=== PATIENT | male | born 1985 | race Caucasian/White ===

== ENCOUNTER 2019-11-07 09:57 | Inpatient (IN) | payer OTHER ==
[2019-11-07 10:39] VITALS: BMI 32.0
--- NOTE | 2019-11-07 11:16 | HP ---
CIWA Score Nausea/Vomitin Muscle Tremors: 3 Anxiety: 3 Agitation: 3 Paroxysmal Sweats: 1-Minimal Palms Moist Orientation: 0-Oriented Tacttile Disturbances: 1-Very Mild Itch/Numbness Auditory Disturbances: 0-None Visual Disturbances: 0-None Headache: 2-Mild CIWA-Ar Total Score: 15 - Admission Criteria OASAS Guidelines: Admission for Medically Managed Detox: Requires at least one of the followin. CIWA greater than 12 2. Seizures within the past 24 hours 3. Delirium tremens within the past 24 hours 4. Hallucinations within the past 24 hours 5. Acute intervention needed for co occurring medical disorder 6. Acute intervention needed for co occurring psychiatric disorder 7. Severe withdrawal that cannot be handled at a lower level of care (continued vomiting, continued diarrhea, abnormal vital signs) requiring intravenous medication and/or fluids 8. Admitting History and Physical - Admission Chief Complaint: i need help to stop drinking alcohol History of Present Illness: this 33 years old male with alcohol dependence,seeking detox,mandated by court, last detox 6 months ago seizure last 6 months ago History Source: Patient Limitations to Obtaining History: No Limitations - Smoking History Smoking history: Current every day smoker Have you smoked in the past 12 months: Yes Aproximately how many cigarettes per day: 20 - Alcohol/Substance Use Hx Alcohol Use: Yes - Social History Usual Living Arrangement: Yes: Alone ADL: Independent Occupation: truck mechanic apprentice History of Recent Travel: No Admission ROS [facility] Chief Complaint: i need help to stop drinking alcohol Allergies/Adverse Reactions: Allergies Allergy/AdvReac Type Severity Reaction Status Date / Time No Known Allergies Allergy Verified 11/07/19 10:32 History of Present Illness: this 33 years old male with alcohol dependence seeking detox mandated by court seizure last 6 months ago last detox 6 months ago in [place] denied medical problem no period of sobriety Exam Limitations: No Limitations - Ebola screening Have you traveled outside of the country in the last 21 days: No Have you had contact with anyone from an Ebola affected area: No - Review of Systems Constitutional: Loss of Appetite, Malaise, Night Sweats, Changes in sleep, Weakness EENT: reports: No Symptoms Reported Respiratory: reports: No Symptoms reported Cardiac: reports: No Symptoms Reported GI: reports: Nausea, Poor Appetite, Abdominal cramping : reports: No Symptoms Reported Musculoskeletal: reports: Back Pain, Muscle Pain Integumentary: reports: Dryness Neuro: reports: Headache, Tremors Endocrine: reports: No Symptoms Reported Hematology: reports: No Symptoms Reported Psychiatric: reports: No Sypmtoms Reported, Judgement Intact, Mood/Affect Appropiate, Orientated x3, other Other Systems: Reviewed and Negative Patient History - Patient Medical History Hx Anemia: No Hx Asthma: No Hx Chronic Obstructive Pulmonary Disease (COPD): No Hx Cancer: No Hx Cardiac Disorders: No Hx Congestive Heart Failure: No Hx Hypertension: No Hx Hypercholesterolemia: No Hx Pacemaker: No HX Cerebrovascular Accident: No Hx Seizures: No Hx Dementia: No Hx Diabetes: No Hx Gastrointestinal Disorders: No Hx Liver Disease: No Hx Genitourinary Disorders: No Hx Sexually Transmitted Disorders: No Hx Renal Disease (ESRD): No Hx Thyroid Disease: No Hx Human Immunodeficiency Virus (HIV): No (10/23 negative) Hx Hepatitis C: No Hx Depression: No Hx Suicide Attempt: No Hx Bipolar Disorder: No Hx Schizophrenia: No Other Medical History: no suicidal,no homicidal - Patient Surgical History Past Surgical History: No - PPD History Previous Implant?: Yes Documented Results: Negative w/o proof Implanted On Prior [facility] Admission?: No PPD to be Administered?: Yes - Smoking Cessation Smoking history: Current every day smoker Have you smoked in the past 12 months: Yes Aproximately how many cigarettes per day: 20 Cigars Per Day: 0 Hx Chewing Tobacco Use: No Initiated information on smoking cessation: Yes 'Breaking Loose' booklet given: 11/07/19 - Substance & Tx. History Hx Alcohol Use: Yes Substance Use Type: Alcohol, Cocaine, Marijuana Hx Substance Use Treatment: Yes (05/23 in [facility]) - Substances abused Alcohol Substance route: Oral Frequency: Daily Amount used: 1 LITER OF VODKA Age of first use: 27 Date of last use: 11/07/19 Marijuana/Hashish Substance route: Smoking Frequency: 1-3 times last 30 days Amount used: $20 Age of first use: 16 Date of last use: 11/07/19 Crack Substance route: Smoking Frequency: 1-2 times per week Amount used: 8 GRAMS OR $600 PER WEEKEND Age of first use: 31 Date of last use: 11/07/19 Admission Physical Exam [facility] - Vital Signs Vital Signs: Vital Signs - 24 hr 01/03/20 10:26 Temperature 96.9 F L Pulse Rate 99 H Respiratory 17 Rate Blood Pressure 123/87 - Physical General Appearance: Yes: Moderate Distress, Tremorous, Irritable, Sweating, Anxious HEENTM: Yes: Normal ENT Inspection, JAYMIE, Pharynx Normal Respiratory: Yes: Lungs Clear, Normal Breath Sounds, No Respiratory Distress Neck: Yes: Within Normal Limits, Supple, Trachea in good position Breast: Yes: Within Normal Limits Cardiology: Yes: Within Normal Limits, Regular Rhythm, Regular Rate, S1, S2 Abdominal: Yes: Within Normal Limits, Normal Bowel Sounds, Non Tender, Flat, Soft Genitourinary: Yes: Within Normal Limits Back: Yes: Muscle Spasm Musculoskeletal: Yes: Back pain, Muscle Pain Extremities: Yes: Tremors Neurological: Yes: mold tooling technician II-XII NML intact, Fully Oriented, Alert, Motor Strength 5/5 Integumentary: Yes: Dry Lymphatic: Yes: Within Normal Limits - Diagnostic (1) Alcohol dependence with uncomplicated withdrawal Current Visit: Yes Status: Acute (2) Alcohol dependence with uncomplicated intoxication Current Visit: Yes Status: Acute (3) Nicotine dependence Current Visit: Yes Status: Acute (4) Seizure Current Visit: Yes Status: Acute Cleared for Admission [facility] - Detox or Rehab [facility] Level of Care: Medically Managed Detox Regimen/Protocol: Librium Breathalyzer - Breathalyzer Breathalyzer: 0.357 Urine Drug Screen - Test Device Lot number: [id number] Expiration date: 08/04/21 - Control Is test valid?: Yes - Results Drug screen NEGATIVE: No Urine drug screen results: BZO-Benzodiazepines Inpatient Rehab Admission - Rehab Decision to Admit Inpatient rehab admission?: No
[2019-11-07] MEDS ORDERED: NICOTINE POLACRILEX 2 MG GUM BUC PRN (11:24)
[2019-11-07] MEDS ORDERED: BISMUTH SUBSALICYLATE 262 MG/15 ML BTL PO PRN (11:24)
[2019-11-07] MEDS ORDERED: hydrOXYzine PAMOATE 25 MG CAPSULE (FP) PO PRN (11:24)
[2019-11-07] MEDS ORDERED: MAGNESIUM HYDROX 2400MG/30ML ORAL SUSPENSION 30 ML CUP PO PRN (11:24)
[2019-11-07] MEDS ORDERED: MENTHOL/PHENOL 1 EACH UD MM PRN (11:24)
[2019-11-07] MEDS ORDERED: IBUPROFEN 400 MG TABLET (FP) PO PRN (11:24)
[2019-11-07] MEDS ORDERED: METHOCARBAMOL 500 MG TABLET PO PRN (11:24)
[2019-11-07] MEDS ORDERED: ACETAMINOPHEN 325 MG TABLET (FP) PO PRN ×2 (11:24)
[2019-11-07] MEDS ORDERED: chlordiazePOXIDE HCL 25 MG CAPSULE PO PRN (11:24)
[2019-11-07] MEDS ORDERED: MAG HYDROX/AL HYDROX/SIMETH 30 ML UNIT-DOSE CUP PO PRN (11:24)
[2019-11-07] MEDS ORDERED: MAGNESIUM CITRATE 300 ML BOTTLE PO PRN (11:24)
[2019-11-07] MEDS: NICOTINE 21 MG/24 HOURS TOPICAL PATCH TD SCH (12:16)
[2019-11-07 15:31] LABS: MCH 28.9 pg (25.7-33.7); MCHC 32.6 g/dl (32.0-35.9); MEAN CELL VOLUME 88.5 fl (80-96); MEAN PLT VOLUME 7.9 fl (7.5-11.1); PLATELET COUNT 168 K/MM3 (134-434); RBC 5.19 M/mm3 (4.00-5.60); RDW 16.1 % (11.9-15.9); WHITE BLOOD COUNT 8.2 K/mm3 (4.0-10.0)
[2019-11-07 15:34] LABS: ALBUMIN 4.3 g/dl (3.4-5.0); BILIRUBIN,TOTAL 0.2 mg/dL (0.2-1); BLOOD UREA NITROGEN 14.7 mg/dL (7-18); CALCIUM 8.4 mg/dL (8.5-10.1); CREATININE 0.7 mg/dL (0.55-1.3); POTASSIUM 4.1 mmol/L (3.5-5.1); TOT PROT 7.2 g/dl (6.4-8.2)
[2019-11-07] MEDS: chlordiazePOXIDE HCL 25 MG CAPSULE PO SCH ×2 (17:22→22:10)
[2019-11-07] MEDS ORDERED: ONDANSETRON *ODT* 4 MG TABLET SL PRN (19:01)
[2019-11-07] MEDS ORDERED: TRIMETHOBENZAMIDE HCL 200MG/2ML INJ IM PRN (21:24)
[2019-11-07] MEDS: THIAMINE HCL 100 MG TABLET (FP) PO SCH (22:09)
[2019-11-07] MEDS: MELATONIN 5 MG TABLETS PO PRN (22:10)
[2019-11-07] MEDS: levETIRAcetam 500 MG TABLET (FP) PO SCH (22:10)
[2019-11-08] MEDS: chlordiazePOXIDE HCL 25 MG CAPSULE PO SCH ×4 (06:05→22:49)
--- NOTE | 2019-11-08 10:51 | PN ---
[facility] CIWA - CIWA Score Nausea/Vomitin-No Nausea/No Vomiting Muscle Tremors: 2 Anxiety: 3 Agitation: 1-Slight > Activity Paroxysmal Sweats: 3 Orientation: 0-Oriented Tacttile Disturbances: 0-None Auditory Disturbances: 0-None Visual Disturbances: 0-None Headache: 2-Mild CIWA-Ar Total Score: 11 [facility] Progress Note (SOAP) Subjective: c/o headache, anxiety, sweats, and shakes. Objective: 11/08/19 10:50 Vital Signs 11/08/19 11/08/19 11/08/19 03:30 06:07 09:09 Temperature 97.6 F 97.3 F L Pulse Rate 72 64 Respiratory 18 18 19 Rate Blood Pressure 128/71 127/78 Laboratory Last Values WBC 8.2 K/mm3 (4.0-10.0) 11/07/19 11:15 RBC 5.19 M/mm3 (4.00-5.60) 11/07/19 11:15 Hgb 15.0 GM/dL (11.7-16.9) 11/07/19 11:15 Hct 46.0 % (35.4-49) 11/07/19 11:15 MCV 88.5 fl (80-96) 11/07/19 11:15 MCH 28.9 pg (25.7-33.7) 11/07/19 11:15 MCHC 32.6 g/dl (32.0-35.9) 11/07/19 11:15 RDW 16.1 % (11.9-15.9) H 11/07/19 11:15 Plt Count 168 K/MM3 (134-434) 11/07/19 11:15 MPV 7.9 fl (7.5-11.1) 11/07/19 11:15 Sodium 143 mmol/L (136-145) 11/07/19 11:15 Potassium 4.1 mmol/L (3.5-5.1) 11/07/19 11:15 Chloride 111 mmol/L (98-107) H 11/07/19 11:15 Carbon Dioxide 23 mmol/L (21-32) 11/07/19 11:15 Anion Gap 9 MMOL/L (8-16) 11/07/19 11:15 BUN 14.7 mg/dL (7-18) 11/07/19 11:15 Creatinine 0.7 mg/dL (0.55-1.3) 11/07/19 11:15 Est GFR (CKD-EPI)AfAm 143.71 11/07/19 11:15 Est GFR (CKD-EPI)NonAf 123.99 11/07/19 11:15 Random Glucose 101 mg/dL (74-106) 11/07/19 11:15 Calcium 8.4 mg/dL (8.5-10.1) L 11/07/19 11:15 Total Bilirubin 0.2 mg/dL (0.2-1) 11/07/19 11:15 AST 66 U/L (15-37) H 11/07/19 11:15 ALT 80 U/L (13-61) H 11/07/19 11:15 Alkaline Phosphatase 135 U/L (45-117) H 11/07/19 11:15 Total Protein 7.2 g/dl (6.4-8.2) 11/07/19 11:15 Albumin 4.3 g/dl (3.4-5.0) 11/07/19 11:15 Labs noted. Assessment: 11/08/19 10:51 AOX3, in no acute respiratory distress. Full ROM, ambulating in the unit. Withdrawal symptoms. Plan: continue detox. Increase fluids.
[2019-11-08] MEDS: PRENATAL VITAMINS W/ FOLIC ACID TABLET (FP) PO SCH (10:56)
[2019-11-08] MEDS: levETIRAcetam 500 MG TABLET (FP) PO SCH ×2 (10:56→22:49)
[2019-11-08] MEDS: NICOTINE 21 MG/24 HOURS TOPICAL PATCH TD SCH (10:58)
[2019-11-08] MEDS: THIAMINE HCL 100 MG TABLET (FP) PO SCH (22:49)
[2019-11-08] MEDS: MELATONIN 5 MG TABLETS PO PRN (22:50)
--- NOTE | 2019-11-08 23:25 | EKG ---
Test Reason : Blood Pressure : / mmHG Vent. Rate : 077 BPM Atrial Rate : 077 BPM P-R Int : 138 ms QRS Dur : 088 ms QT Int : 380 ms P-R-T Axes : 060 044 035 degrees QTc Int : 430 ms NORMAL SINUS RHYTHM NORMAL ECG NO PREVIOUS ECGS AVAILABLE Confirmed by KANE SMITH MD ([id number]) on 11/08/2019 11:25:09 PM Referred By: Confirmed By:KANE SMITH MD
[2019-11-09] MEDS: chlordiazePOXIDE HCL 25 MG CAPSULE PO SCH ×4 (06:22→22:18)
--- NOTE | 2019-11-09 09:55 | PN ---
S CIWA - CIWA Score Nausea/Vomitin-Mild Nausea/No Vomiting Muscle Tremors: 2 Anxiety: 2 Agitation: 2 Paroxysmal Sweats: 1-Minimal Palms Moist Orientation: 0-Oriented Tacttile Disturbances: 0-None Auditory Disturbances: 0-None Visual Disturbances: 0-None Headache: 1-Very Mild CIWA-Ar Total Score: 9 BHS Progress Note (SOAP) Subjective: 33 years old male admitted on 11/07/19 for alcohol withdrawal sx management treating with librium detox regimen ate breakfast resting on bed feeling tired trouble sleeping last night prefers to stay in bed today Objective: 11/09/19 09:53 Vital Signs Temperature 97.2 F L 11/09/19 09:13 Pulse Rate 86 11/09/19 09:13 Respiratory Rate 19 11/09/19 09:13 Blood Pressure 117/83 11/09/19 09:13 O2 Sat by Pulse Oximetry (%) Laboratory Last Values WBC 8.2 K/mm3 (4.0-10.0) 11/07/19 11:15 RBC 5.19 M/mm3 (4.00-5.60) 11/07/19 11:15 Hgb 15.0 GM/dL (11.7-16.9) 11/07/19 11:15 Hct 46.0 % (35.4-49) 11/07/19 11:15 MCV 88.5 fl (80-96) 11/07/19 11:15 MCH 28.9 pg (25.7-33.7) 11/07/19 11:15 MCHC 32.6 g/dl (32.0-35.9) 11/07/19 11:15 RDW 16.1 % (11.9-15.9) H 11/07/19 11:15 Plt Count 168 K/MM3 (134-434) 11/07/19 11:15 MPV 7.9 fl (7.5-11.1) 11/07/19 11:15 Sodium 143 mmol/L (136-145) 11/07/19 11:15 Potassium 4.1 mmol/L (3.5-5.1) 11/07/19 11:15 Chloride 111 mmol/L (98-107) H 11/07/19 11:15 Carbon Dioxide 23 mmol/L (21-32) 11/07/19 11:15 Anion Gap 9 MMOL/L (8-16) 11/07/19 11:15 BUN 14.7 mg/dL (7-18) 11/07/19 11:15 Creatinine 0.7 mg/dL (0.55-1.3) 11/07/19 11:15 Est GFR (CKD-EPI)AfAm 143.71 11/07/19 11:15 Est GFR (CKD-EPI)NonAf 123.99 11/07/19 11:15 Random Glucose 101 mg/dL (74-106) 11/07/19 11:15 Calcium 8.4 mg/dL (8.5-10.1) L 11/07/19 11:15 Total Bilirubin 0.2 mg/dL (0.2-1) 11/07/19 11:15 AST 66 U/L (15-37) H 11/07/19 11:15 ALT 80 U/L (13-61) H 11/07/19 11:15 Alkaline Phosphatase 135 U/L (45-117) H 11/07/19 11:15 Total Protein 7.2 g/dl (6.4-8.2) 11/07/19 11:15 Albumin 4.3 g/dl (3.4-5.0) 11/07/19 11:15 RPR Titer Nonreactive (NONREACTIVE) 11/07/19 11:15 lab noted Assessment: 11/09/19 09:54 alcohol withdrawal Plan: librium regimen
[2019-11-09] MEDS: levETIRAcetam 500 MG TABLET (FP) PO SCH ×2 (10:23→22:18)
[2019-11-09] MEDS: PRENATAL VITAMINS W/ FOLIC ACID TABLET (FP) PO SCH (10:23)
[2019-11-09] MEDS: NICOTINE 21 MG/24 HOURS TOPICAL PATCH TD SCH (10:24)
[2019-11-09] MEDS: MELATONIN 5 MG TABLETS PO PRN (22:18)
[2019-11-09] MEDS: THIAMINE HCL 100 MG TABLET (FP) PO SCH (22:18)
[2019-11-10] MEDS ORDERED: chlordiazePOXIDE HCL 10 MG CAPSULE PO PRN
[2019-11-10] MEDS: chlordiazePOXIDE HCL 10 MG CAPSULE PO SCH ×2 (05:55→10:23)
[2019-11-10 09:07] VITALS: BP 125/89; PULSE 78; TEMP 98.4
[2019-11-10] MEDS: levETIRAcetam 500 MG TABLET (FP) PO SCH (10:22)
[2019-11-10] MEDS: PRENATAL VITAMINS W/ FOLIC ACID TABLET (FP) PO SCH (10:22)
[2019-11-10] MEDS: NICOTINE 21 MG/24 HOURS TOPICAL PATCH TD SCH (10:23)
--- NOTE | 2019-11-10 11:40 | DS ---
[facility] Detox Discharge Summary Admission Date: 11/07/19 Discharge Date: 11/10/19 - History Present History: Alcohol Dependence Additional Comments: 33 years old male admitted on 11/07/19 for alcohol withdrawal sx management treated with librium detox regimen patient tolerated well alert oriented x 3 cardiac s1s2 regular rate rhythm respiratory clear lungs bilaterally on auscultation extremities full range of motion Pertinent Past History: patient prefers to go to [facility] today earlier than estimated discharge date of 11/12/19 case discussed with the nurse routine discharge is appropriated - Physical Exam Results Vital Signs: Vital Signs Temperature 98.4 F 11/10/19 09:05 Pulse Rate 78 11/10/19 09:05 Respiratory Rate 18 11/10/19 09:05 Blood Pressure 125/89 11/10/19 09:05 O2 Sat by Pulse Oximetry (%) Pertinent Admission Physical Exam Findings: alcohol withdrawal Vital Signs Temperature 98.4 F 11/10/19 09:05 Pulse Rate 78 11/10/19 09:05 Respiratory Rate 18 11/10/19 09:05 Blood Pressure 125/89 11/10/19 09:05 O2 Sat by Pulse Oximetry (%) Laboratory Last Values WBC 8.2 K/mm3 (4.0-10.0) 11/07/19 11:15 RBC 5.19 M/mm3 (4.00-5.60) 11/07/19 11:15 Hgb 15.0 GM/dL (11.7-16.9) 11/07/19 11:15 Hct 46.0 % (35.4-49) 11/07/19 11:15 MCV 88.5 fl (80-96) 11/07/19 11:15 MCH 28.9 pg (25.7-33.7) 11/07/19 11:15 MCHC 32.6 g/dl (32.0-35.9) 11/07/19 11:15 RDW 16.1 % (11.9-15.9) H 11/07/19 11:15 Plt Count 168 K/MM3 (134-434) 11/07/19 11:15 MPV 7.9 fl (7.5-11.1) 11/07/19 11:15 Sodium 143 mmol/L (136-145) 11/07/19 11:15 Potassium 4.1 mmol/L (3.5-5.1) 11/07/19 11:15 Chloride 111 mmol/L (98-107) H 11/07/19 11:15 Carbon Dioxide 23 mmol/L (21-32) 11/07/19 11:15 Anion Gap 9 MMOL/L (8-16) 11/07/19 11:15 BUN 14.7 mg/dL (7-18) 11/07/19 11:15 Creatinine 0.7 mg/dL (0.55-1.3) 11/07/19 11:15 Est GFR (CKD-EPI)AfAm 143.71 11/07/19 11:15 Est GFR (CKD-EPI)NonAf 123.99 11/07/19 11:15 Random Glucose 101 mg/dL (74-106) 11/07/19 11:15 Calcium 8.4 mg/dL (8.5-10.1) L 11/07/19 11:15 Total Bilirubin 0.2 mg/dL (0.2-1) 11/07/19 11:15 AST 66 U/L (15-37) H 11/07/19 11:15 ALT 80 U/L (13-61) H 11/07/19 11:15 Alkaline Phosphatase 135 U/L (45-117) H 11/07/19 11:15 Total Protein 7.2 g/dl (6.4-8.2) 11/07/19 11:15 Albumin 4.3 g/dl (3.4-5.0) 11/07/19 11:15 RPR Titer Nonreactive (NONREACTIVE) 11/07/19 11:15 lab noted - Treatment Hospital Course: Detox Protocol Followed, Detoxed Safely, Responded well, Discharged Condition Good, Rehab Referral Accepted Patient has Accepted a Rehab Referral to: [facility] - Medication Discharge Medications: Ambulatory Orders levETIRAcetam [Keppra -] 500 mg PO BID 11/07/19 - Diagnosis (1) Alcohol dependence with uncomplicated withdrawal Status: Acute (2) Nicotine dependence Status: Acute Qualifiers: Nicotine product type: cigarettes Substance use status: in withdrawal Qualified Code(s): F17.213 - Nicotine dependence, cigarettes, with withdrawal (3) Seizure Status: Chronic - AMA Did Patient Leave Against Medical Advice: No CIWA Score - CIWA Score Nausea/Vomitin-No Nausea/No Vomiting Muscle Tremors: 1-None Visible, but [place] Anxiety: 1-Mildly Anxious Agitation: 1-Slight > Activity Paroxysmal Sweats: 1-Minimal Palms Moist Orientation: 0-Oriented Tacttile Disturbances: 0-None Auditory Disturbances: 0-None Visual Disturbances: 0-None Headache: 1-Very Mild CIWA-Ar Total Score: 5
[2019-11-11] MEDS ORDERED: chlordiazePOXIDE HCL 10 MG CAPSULE PO SCH (05:00)
[2019-11-12] MEDS ORDERED: chlordiazePOXIDE HCL 10 MG CAPSULE PO ONE (05:00)
== END 2019-11-10 11:36 | disposition home or self-care (01) | DRG 775 ==
LOC: YASAS 09:57 → Y3N 11:17
PROVIDERS: ADMIT Allergy & Immunology; ATTEND Allergy & Immunology
PROC: HZ2ZZZZ Detoxification Services for Substance Abuse Treatment (ICD-10-PCS; principal; 2019-11-07)
DX: F10.230 Alcohol dependence with withdrawal, uncomplicated (principal); F10.220 Alcohol dependence with intoxication, uncomplicated; F17.210 Nicotine dependence, cigarettes, uncomplicated; G40.909 Epilepsy, unspecified, not intractable, without status epilepticus
CPT/HCPCS: 36415; 80053; 85027; 86593; 93005; 93010; Q0162

== ENCOUNTER 2019-11-18 08:24 | Inpatient (IN) | payer OTHER ==
[2019-11-18 08:50] VITALS: BMI 32.0
--- NOTE | 2019-11-18 09:08 | HP ---
CIWA Score Nausea/Vomitin Muscle Tremors: None Anxiety: 4-Mod. Anxious/Guarded Agitation: 4-Moderately Restless Paroxysmal Sweats: No Perspiration Orientation: 0-Oriented Tacttile Disturbances: 0-None Auditory Disturbances: 0-None Visual Disturbances: 0-None Headache: 4-Moderately Severe CIWA-Ar Total Score: 15 - Admission Criteria OASAS Guidelines: Admission for Medically Managed Detox: Requires at least one of the followin. CIWA greater than 12 2. Seizures within the past 24 hours 3. Delirium tremens within the past 24 hours 4. Hallucinations within the past 24 hours 5. Acute intervention needed for co occurring medical disorder 6. Acute intervention needed for co occurring psychiatric disorder 7. Severe withdrawal that cannot be handled at a lower level of care (continued vomiting, continued diarrhea, abnormal vital signs) requiring intravenous medication and/or fluids 8. Admitting History and Physical - Smoking History Smoking history: Current every day smoker Have you smoked in the past 12 months: Yes Aproximately how many cigarettes per day: 20 - Alcohol/Substance Use Hx Alcohol Use: Yes - Social History ADL: Independent Occupation: dedicated intermodal truck driver History of Recent Travel: No Admission ROS [facility] Allergies/Adverse Reactions: Allergies Allergy/AdvReac Type Severity Reaction Status Date / Time No Known Allergies Allergy Verified 11/18/19 08:38 History of Present Illness: pt here requesting detox from etoh use , reports daily use . Pt is very poor historian due to intoxication, tangential . reports brought in by police, arrested yesterday 2/2 DWI . 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 Exam Limitations: Clinical Condition, Intoxication - Ebola screening Have you traveled outside of the country in the last 21 days: No Have you had contact with anyone from an Ebola affected area: No - Review of Systems Constitutional: Loss of Appetite EENT: reports: No Symptoms Reported Respiratory: reports: No Symptoms reported Cardiac: reports: No Symptoms Reported GI: reports: Nausea, Poor Appetite, Vomiting : reports: No Symptoms Reported Musculoskeletal: reports: No Symptoms Reported, Other (left knee swelling - chronic) Integumentary: reports: Bruising ( nash hands) Neuro: reports: Headache, Seizure Endocrine: reports: No Symptoms Reported Psychiatric: reports: Agitated, Anxious Patient History - Patient Medical History Hx Anemia: No Hx Asthma: No Hx Chronic Obstructive Pulmonary Disease (COPD): No Hx Cancer: No Hx Cardiac Disorders: No Hx Congestive Heart Failure: No Hx Hypertension: No Hx Hypercholesterolemia: No Hx Pacemaker: No HX Cerebrovascular Accident: No Hx Seizures: No Hx Dementia: No Hx Diabetes: No Hx Gastrointestinal Disorders: No Hx Liver Disease: No Hx Genitourinary Disorders: No Hx Sexually Transmitted Disorders: No Hx Renal Disease (ESRD): No Hx Thyroid Disease: No Hx Human Immunodeficiency Virus (HIV): No (10/23 negative) Hx Hepatitis C: No Hx Depression: No Hx Suicide Attempt: No Hx Bipolar Disorder: No Hx Schizophrenia: No - Patient Surgical History Past Surgical History: No - PPD History Date: 11/09/19 - Smoking Cessation Smoking history: Current every day smoker Have you smoked in the past 12 months: Yes Aproximately how many cigarettes per day: 20 Cigars Per Day: 0 Hx Chewing Tobacco Use: No Initiated information on smoking cessation: No - Substances abused Alcohol Substance route: Oral Frequency: Daily Amount used: 1 LITER OF VODKA Age of first use: 27 Date of last use: 11/18/19 Marijuana/Hashish Substance route: Smoking Frequency: 1-3 times last 30 days Amount used: $10 Age of first use: 16 Date of last use: 11/17/19 Crack Substance route: Smoking Frequency: 1-2 times per week Amount used: 8 GRAMS OR $600 PER WEEKEND Age of first use: 31 Date of last use: 11/07/19 Admission Physical Exam [facility] - Vital Signs Vital Signs: Vital Signs - 24 hr 11/18/19 08:39 Temperature 96.4 F L Pulse Rate 107 H Respiratory 18 Rate Blood Pressure 144/100 - Physical General Appearance: Yes: Moderate Distress, Alcohol on Breath, Intoxicated, Anxious HEENTM: Yes: EOMI, Hearing grossly Normal, Normocephalic, Normal Voice Respiratory: Yes: Chest Non-Tender, Lungs Clear, Normal Breath Sounds, No Respiratory Distress, No Accessory Muscle Use Neck: Yes: No masses,lesions,Nodules, Trachea in good position Cardiology: Yes: Regular Rhythm, Regular Rate, S1, S2 Abdominal: Yes: Non Tender, Soft, Protuberent Musculoskeletal: Yes: Gait Steady Extremities: Yes: Non-Tender, Other (varicose veins nash LE L >> R) Neurological: Yes: Alert, Disoriented, Other (agitated) Integumentary: Yes: Warm, Erythema (nash hands and wrists) - Diagnostic (1) Alcohol dependence with uncomplicated intoxication Current Visit: Yes Status: Chronic (2) Nicotine dependence Current Visit: Yes Status: Chronic Qualifiers: Nicotine product type: cigarettes Breathalyzer - Breathalyzer Breathalyzer: 0.261 Urine Drug Screen - Test Device Lot number: [id number] Expiration date: 06/04/21 - Control Is test valid?: Yes - Results Drug screen NEGATIVE: No Urine drug screen results: AUREA-Cocaine, BZO-Benzodiazepines Inpatient Rehab Admission - Rehab Decision to Admit Inpatient rehab admission?: No
[2019-11-18] MEDS ORDERED: MAGNESIUM CITRATE 300 ML BOTTLE PO PRN (09:16)
[2019-11-18] MEDS ORDERED: MELATONIN 5 MG TABLETS PO PRN (09:16)
[2019-11-18] MEDS ORDERED: ONDANSETRON *ODT* 4 MG TABLET SL PRN (09:16)
[2019-11-18] MEDS ORDERED: MAG HYDROX/AL HYDROX/SIMETH 30 ML UNIT-DOSE CUP PO PRN (09:16)
[2019-11-18] MEDS ORDERED: IBUPROFEN 400 MG TABLET (FP) PO PRN (09:16)
[2019-11-18] MEDS ORDERED: ACETAMINOPHEN 325 MG TABLET (FP) PO PRN ×2 (09:16)
[2019-11-18] MEDS ORDERED: MAGNESIUM HYDROX 2400MG/30ML ORAL SUSPENSION 30 ML CUP PO PRN (09:16)
[2019-11-18] MEDS ORDERED: hydrOXYzine PAMOATE 25 MG CAPSULE (FP) PO PRN (09:16)
[2019-11-18] MEDS ORDERED: MENTHOL/PHENOL 1 EACH UD MM PRN (09:16)
[2019-11-18] MEDS ORDERED: BISMUTH SUBSALICYLATE 262 MG/15 ML BTL PO PRN (09:16)
[2019-11-18] MEDS ORDERED: chlordiazePOXIDE HCL 25 MG CAPSULE PO PRN (09:17)
[2019-11-18] MEDS ORDERED: chlordiazePOXIDE HCL 25 MG CAPSULE PO ONE (09:47)
[2019-11-18] MEDS: levETIRAcetam 500 MG TABLET (FP) PO SCH ×2 (09:57→22:16)
[2019-11-18] MEDS ORDERED: PRENATAL VITAMINS W/ FOLIC ACID TABLET (FP) PO SCH (10:00)
[2019-11-18] MEDS: chlordiazePOXIDE HCL 25 MG CAPSULE PO SCH ×3 (10:01→22:16)
[2019-11-18] MEDS ORDERED: THIAMINE HCL 100 MG TABLET (FP) PO SCH (22:00)
[2019-11-19] MEDS: chlordiazePOXIDE HCL 25 MG CAPSULE PO SCH (07:54)
[2019-11-19 09:08] VITALS: BP 156/95; PULSE 93; TEMP 99.7
--- NOTE | 2019-11-19 09:17 | PN ---
S Progress Note Note: pt approached the nurses station insisting on leaving. Pt states I want to leave I don't need to be here. Pt was encouraged to stay d/t the reasons for him being here and he states I DON'T CARE! pt was advised about the risk of relapse, seizures, DTs, OD, incarceration and or loss, pt chose to sign out AMA.
--- NOTE | 2019-11-19 09:19 | DS ---
[facility] Detox Discharge Summary Admission Date: 11/18/19 - History Present History: Alcohol Dependence - Physical Exam Results Vital Signs: Vital Signs Temperature 99.7 F H 11/19/19 06:00 Pulse Rate 93 H 11/19/19 06:00 Respiratory Rate 11/19/19 06:00 Blood Pressure 156/95 11/19/19 06:00 O2 Sat by Pulse Oximetry (%) Pertinent Admission Physical Exam Findings: Vital Signs Temperature 99.7 F H 11/19/19 06:00 Pulse Rate 93 H 11/19/19 06:00 Respiratory Rate 11/19/19 06:00 Blood Pressure 156/95 11/19/19 06:00 O2 Sat by Pulse Oximetry (%) aaox3 ambulating no acute distress - Treatment Hospital Course: Rehab Referral Accepted - Medication Discharge Medications: Ambulatory Orders levETIRAcetam [Keppra -] 500 mg PO BID 11/07/19 - Diagnosis (1) Alcohol dependence with uncomplicated intoxication Current Visit: Yes Status: Chronic (2) Nicotine dependence Current Visit: Yes Status: Chronic Qualifiers: Nicotine product type: cigarettes Substance use status: uncomplicated Qualified Code(s): F17.210 - Nicotine dependence, cigarettes, uncomplicated (3) Alcohol dependence with uncomplicated withdrawal Current Visit: Yes Status: Chronic (4) Seizure Current Visit: No Status: Chronic - AMA Did Patient Leave Against Medical Advice: Yes
[2019-11-20] MEDS ORDERED: chlordiazePOXIDE HCL 25 MG CAPSULE PO SCH (05:00)
[2019-11-21] MEDS ORDERED: chlordiazePOXIDE HCL 10 MG CAPSULE PO PRN
[2019-11-21] MEDS ORDERED: chlordiazePOXIDE HCL 10 MG CAPSULE PO SCH (05:00)
[2019-11-22] MEDS ORDERED: chlordiazePOXIDE HCL 10 MG CAPSULE PO SCH (05:00)
[2019-11-23] MEDS ORDERED: chlordiazePOXIDE HCL 10 MG CAPSULE PO ONE (05:00)
== END 2019-11-19 09:40 | disposition left against medical advice (07) | DRG 770 ==
LOC: YASAS 08:24 → Y6N 09:23
PROVIDERS: ADMIT Allergy & Immunology; ATTEND Allergy & Immunology
PROC: HZ2ZZZZ Detoxification Services for Substance Abuse Treatment (ICD-10-PCS; principal; 2019-11-18)
DX: F10.230 Alcohol dependence with withdrawal, uncomplicated (principal); F10.220 Alcohol dependence with intoxication, uncomplicated; F12.20 Cannabis dependence, uncomplicated; F14.10 Cocaine abuse, uncomplicated; F17.210 Nicotine dependence, cigarettes, uncomplicated; G40.909 Epilepsy, unspecified, not intractable, without status epilepticus; Z85.72 Personal history of non-Hodgkin lymphomas
CPT/HCPCS: Q0162

== ENCOUNTER 2020-07-08 15:22 | Inpatient (IN) | payer OTHER ==
--- NOTE | 2020-07-08 18:19 | HP ---
CIWA Score Nausea/Vomitin Muscle Tremors: 3 Anxiety: 3 Agitation: 2 Paroxysmal Sweats: 3 Orientation: 1-Uncertain about Date Tacttile Disturbances: 0-None Auditory Disturbances: 0-None Visual Disturbances: 0-None Headache: 3-Moderate CIWA-Ar Total Score: 20 - Admission Criteria OASAS Guidelines: Admission for Medically Managed Detox: Requires at least one of the followin. CIWA greater than 12 2. Seizures within the past 24 hours 3. Delirium tremens within the past 24 hours 4. Hallucinations within the past 24 hours 5. Acute intervention needed for co occurring medical disorder 6. Acute intervention needed for co occurring psychiatric disorder 7. Severe withdrawal that cannot be handled at a lower level of care (continued vomiting, continued diarrhea, abnormal vital signs) requiring intravenous medication and/or fluids 8. Admitting History and Physical - Smoking History Smoking history: Current every day smoker Have you smoked in the past 12 months: Yes Aproximately how many cigarettes per day: 20 - Alcohol/Substance Use Hx Alcohol Use: Yes - Social History ADL: Independent Occupation: heavy duty truck mechanic History of Recent Travel: No Admission [facility] Chief Complaint: mandated by court to come here after DWI Allergies/Adverse Reactions: Allergies Allergy/AdvReac Type Severity Reaction Status Date / Time No Known Allergies Allergy Verified 07/08/20 19:12 History of Present Illness: Patient is a 34 y/o male with hx of lymphoma in remission and seizure who presents for detox from Alcohol. Patient started drinking at age 15. Patient was sober at 2018. Patient and that triggered his drinking. Patient drinks every day. Patient drinks 2 L of vodka a day, also drinks beer. Patient denies ever blacking out from drinking. Patient reports positive for eye openers. Patient states his seizure condition is not related to his alcohol use. Patient used to use crack. Last used 6-7 months ago. used to use 200-300 dollars every day. Denies using any xanax or benzos. Patient smokes 1 and a half pack of cigarettes a day. Sghx: none allergies: none Social: heavy duty truck mechanic, live in [facility] - Review of Systems Constitutional: Other (denies: chills, fever) EENT: denies: Blurred Vision, Tinnitus Respiratory: denies: Cough, Shortness of Breath, Wheezing Cardiac: denies: Chest Pain, Palpitations GI: reports: Nausea, Vomiting. denies: Constipated, Diarrhea : denies: Dysuria Musculoskeletal: denies: Muscle Pain Neuro: reports: Headache, Tremors, Dizziness Hematology: denies: Easy Bleeding Psychiatric: denies: Depressed Patient History - Patient Medical History Hx Anemia: No Hx Asthma: No Hx Chronic Obstructive Pulmonary Disease (COPD): No Hx Cancer: No Hx Cardiac Disorders: No Hx Congestive Heart Failure: No Hx Hypertension: No Hx Hypercholesterolemia: No Hx Pacemaker: No HX Cerebrovascular Accident: No Hx Seizures: No Hx Dementia: No Hx Diabetes: No Hx Gastrointestinal Disorders: No Hx Liver Disease: No Hx Genitourinary Disorders: No Hx Sexually Transmitted Disorders: No Hx Renal Disease (ESRD): No Hx Thyroid Disease: No Hx Human Immunodeficiency Virus (HIV): No (10/23 negative) Hx Hepatitis C: No Hx Depression: No Hx Suicide Attempt: No Hx Bipolar Disorder: No Hx Schizophrenia: No - Patient Surgical History Past Surgical History: No - PPD History Date: 11/09/19 Results: 0MM - Smoking Cessation Smoking history: Current every day smoker Have you smoked in the past 12 months: Yes Aproximately how many cigarettes per day: 20 Cigars Per Day: 0 Hx Chewing Tobacco Use: No Initiated information on smoking cessation: No - Substances abused Alcohol Substance route: Oral Frequency: Daily Amount used: 2 LI Age of first use: 15 Admission Physical Exam [facility] - Physical General Appearance: Yes: Within Normal Limits, Tremorous HEENTM: Yes: Normocephalic Respiratory: Yes: Within Normal Limits, No Respiratory Distress, No Accessory Muscle Use Cardiology: Yes: Within Normal Limits, Regular Rhythm, Regular Rate Abdominal: Yes: Within Normal Limits, Non Tender, Flat Musculoskeletal: Yes: full range of Motion Extremities: Yes: Pedal Edema Neurological: Yes: Fully Oriented, Normal Response - Diagnostic (1) Alcohol dependence with uncomplicated withdrawal Current Visit: No Status: Chronic (2) Nicotine dependence Current Visit: No Status: Chronic Qualifiers: Nicotine product type: cigarettes Substance use status: uncomplicated Qualified Code(s): F17.210 - Nicotine dependence, cigarettes, uncomplicated (3) Seizure Current Visit: No Status: Chronic Cleared for Admission [facility] - Detox or Rehab [facility] Level of Care: Medically Managed Detox Regimen/Protocol: Librium Breathalyzer - Breathalyzer Breathalyzer: 0.222 Vital Signs - Vital Signs Vital signs refused: No Temperature: 97.8 F Temperature source: Oral Pulse Rate: 103 Respiratory Rate: 18 Blood Pressure: 136/76 BP Location: Left Arm - Height Height: 6 ft 3 in - Weight Weight: 128.82 kg - BMI Body Mass Index (BMI): 35.4 Urine Drug Screen - Test Device Lot number: [id number] Expiration date: 02/10/22 - Control Is test valid?: Yes - Results Drug screen NEGATIVE: No Urine drug screen results: BZO-Benzodiazepines Inpatient Rehab Admission - Rehab Decision to Admit Inpatient rehab admission?: No
[2020-07-08 18:28] VITALS: BMI 35.4
[2020-07-08] MEDS ORDERED: MAGNESIUM HYDROX 2400MG/30ML ORAL SUSPENSION 30 ML CUP PO PRN (18:41)
[2020-07-08] MEDS ORDERED: MAGNESIUM CITRATE 300 ML BOTTLE PO PRN (18:41)
[2020-07-08] MEDS ORDERED: IBUPROFEN 400 MG TABLET (FP) PO PRN (18:41)
[2020-07-08] MEDS ORDERED: NICOTINE POLACRILEX 2 MG GUM BUC PRN (18:41)
[2020-07-08] MEDS ORDERED: MAG HYDROX/AL HYDROX/SIMETH 30 ML UNIT-DOSE CUP PO PRN (18:41)
[2020-07-08] MEDS ORDERED: BISMUTH SUBSALICYLATE 524 MG/30 ML UD PO PRN (18:41)
[2020-07-08] MEDS ORDERED: METHOCARBAMOL 500 MG TABLET PO PRN (18:41)
[2020-07-08] MEDS ORDERED: chlordiazePOXIDE HCL 25 MG CAPSULE PO PRN (18:41)
[2020-07-08] MEDS ORDERED: ONDANSETRON *ODT* 4 MG TABLET SL PRN (18:41)
[2020-07-08] MEDS ORDERED: MENTHOL/PHENOL 1 EACH UD MM PRN (18:41)
[2020-07-08] MEDS: NICOTINE 21 MG/24 HOURS TOPICAL PATCH TD SCH (19:47)
[2020-07-08] MEDS: PRENATAL VITAMINS W/ FOLIC ACID TABLET (FP) PO SCH (19:47)
[2020-07-08] MEDS: levETIRAcetam 500 MG TABLET (FP) PO SCH (21:18)
[2020-07-08] MEDS: hydrOXYzine PAMOATE 25 MG CAPSULE (FP) PO SCH (21:27)
[2020-07-08] MEDS ORDERED: MELATONIN 5 MG TABLETS PO SCH (22:00)
[2020-07-08] MEDS ORDERED: THIAMINE HCL 100 MG TABLET (FP) PO SCH (22:00)
[2020-07-08] MEDS: chlordiazePOXIDE HCL 25 MG CAPSULE PO SCH (22:05)
[2020-07-09] MEDS: chlordiazePOXIDE HCL 25 MG CAPSULE PO SCH ×2 (06:17→10:41)
[2020-07-09] MEDS: hydrOXYzine PAMOATE 25 MG CAPSULE (FP) PO SCH ×3 (06:18→15:20)
[2020-07-09] MEDS ORDERED: MASKS NR ONE (06:50)
--- NOTE | 2020-07-09 10:35 | PN ---
S CIWA - CIWA Score Nausea/Vomitin Muscle Tremors: 2 Anxiety: 2 Agitation: 2 Paroxysmal Sweats: No Perspiration Orientation: 0-Oriented Tacttile Disturbances: 1-Very Mild Itch/Numbness Auditory Disturbances: 0-None Visual Disturbances: 0-None Headache: 2-Mild CIWA-Ar Total Score: 11 S Progress Note (SOAP) Subjective: alert,irritable,anxious,interrupted sleep,tremor,aching pain in the body and back Objective: 07/09/20 10:31 Vital Signs Temperature 97.5 F L 07/09/20 05:32 Pulse Rate 87 07/09/20 05:32 Respiratory Rate 20 07/09/20 05:32 Blood Pressure 153/101 H 07/09/20 05:32 O2 Sat by Pulse Oximetry (%) 100 07/09/20 05:32 07/09/20 10:32 labs pending Assessment: 07/09/20 10:34 withdrawal symptom Plan: continue detox librium regimen,seizure precaution,keppra 500 mgs po bid
[2020-07-09] MEDS: levETIRAcetam 500 MG TABLET (FP) PO SCH (10:41)
[2020-07-09] MEDS: NICOTINE 21 MG/24 HOURS TOPICAL PATCH TD SCH (10:42)
[2020-07-09] MEDS: PRENATAL VITAMINS W/ FOLIC ACID TABLET (FP) PO SCH (10:42)
[2020-07-09 12:31] LABS: HEMATOCRIT 30.7 % (35.4-49); HEMOGLOBIN 9.7 GM/dL (11.7-16.9); MCH 24.7 pg (25.7-33.7); MCHC 31.6 g/dl (32.0-35.9); MEAN CELL VOLUME 78.1 fl (80-96); MEAN PLT VOLUME 8.9 fl (7.5-11.1); PLATELET COUNT 48 K/MM3 (134-434); RBC 3.94 M/mm3 (4.00-5.60); RDW 20.4 % (11.9-15.9); WHITE BLOOD COUNT 3.1 K/mm3 (4.0-10.0)
[2020-07-09 12:43] VITALS: BP 155/89; PULSE 103; TEMP 97.3
[2020-07-09 12:49] LABS: ALBUMIN 3.6 g/dl (3.4-5.0); BLOOD UREA NITROGEN 8.2 mg/dL (7-18); CALCIUM 8.7 mg/dL (8.5-10.1); POTASSIUM 3.8 mmol/L (3.5-5.1)
[2020-07-09 12:53] LABS: BILIRUBIN,TOTAL 1.5 mg/dL (0.2-1); CREATININE 0.4 mg/dL (0.55-1.3); TOT PROT 6.1 g/dl (6.4-8.2)
--- NOTE | 2020-07-09 15:36 | PN ---
[facility] Progress Note Note: patient did not want to complete treatment,all attempts to convince patient to stay with no avail, high risks of relapsing explained understood including pancytopenia,the risk of seizure,permanent disability,and addressed with patient, patient understood,advise to call 911 if not feeling well, stated he will see his medical provider dr Finley in [place] for evaluation
--- NOTE | 2020-07-09 15:41 | DS ---
[facility] Detox Discharge Summary Admission Date: 07/08/20 Discharge Date: 07/09/20 - History Present History: Alcohol Dependence Additional Comments: alert,oriented x 3 lung clear on auscultation bilaterally abdomen soft,no pain,no tenderness no bruise patient signed release ama,please see the progress note Pertinent Past History: seizure nicotine dependence - Physical Exam Results Vital Signs: Vital Signs Temperature 97.3 F L 07/09/20 08:35 Pulse Rate 103 H 07/09/20 08:35 Respiratory Rate 19 07/09/20 08:35 Blood Pressure 155/89 07/09/20 08:35 O2 Sat by Pulse Oximetry (%) 100 07/09/20 08:35 Pertinent Admission Physical Exam Findings: withdrawal signs and symptom Laboratory Last Values WBC 3.1 K/mm3 (4.0-10.0) L 07/09/20 08:40 RBC 3.94 M/mm3 (4.00-5.60) L 07/09/20 08:40 Hgb 9.7 GM/dL (11.7-16.9) L 07/09/20 08:40 Hct 30.7 % (35.4-49) L D 07/09/20 08:40 MCV 78.1 fl (80-96) L 07/09/20 08:40 MCH 24.7 pg (25.7-33.7) L D 07/09/20 08:40 MCHC 31.6 g/dl (32.0-35.9) L 07/09/20 08:40 RDW 20.4 % (11.9-15.9) H 07/09/20 08:40 Plt Count 48 K/MM3 (134-434) L D 07/09/20 08:40 MPV 8.9 fl (7.5-11.1) D 07/09/20 08:40 Platelet Comment No clotting detected 07/09/20 08:40 Sodium 140 mmol/L (136-145) 07/09/20 08:40 Potassium 3.8 mmol/L (3.5-5.1) 07/09/20 08:40 Chloride 104 mmol/L (98-107) 07/09/20 08:40 Carbon Dioxide 27 mmol/L (21-32) 07/09/20 08:40 Anion Gap 9 MMOL/L (8-16) 07/09/20 08:40 BUN 8.2 mg/dL (7-18) 07/09/20 08:40 Creatinine 0.4 mg/dL (0.55-1.3) L 07/09/20 08:40 Est GFR (CKD-EPI)AfAm 179.61 07/09/20 08:40 Est GFR (CKD-EPI)NonAf 154.97 07/09/20 08:40 Random Glucose 97 mg/dL (74-106) 07/09/20 08:40 Calcium 8.7 mg/dL (8.5-10.1) 07/09/20 08:40 Total Bilirubin 1.5 mg/dL (0.2-1) H 07/09/20 08:40 AST 181 U/L (15-37) H 07/09/20 08:40 ALT 119 U/L (13-61) H 07/09/20 08:40 Alkaline Phosphatase 229 U/L (45-117) H 07/09/20 08:40 Total Protein 6.1 g/dl (6.4-8.2) L 07/09/20 08:40 Albumin 3.6 g/dl (3.4-5.0) 07/09/20 08:40 Syphilis Serology Non-reactive (NONREACTIVE) 07/09/20 08:40 pancytopenia elevation of liver enzymes - Medication Discharge Medications: Ambulatory Orders levETIRAcetam [Keppra -] 500 mg PO BID 11/07/19 - Diagnosis (1) Alcohol dependence with uncomplicated intoxication Current Visit: No Status: Chronic (2) Alcohol dependence with uncomplicated withdrawal Current Visit: No Status: Chronic (3) Nicotine dependence Current Visit: No Status: Chronic Qualifiers: Nicotine product type: cigarettes Substance use status: uncomplicated Qualified Code(s): F17.210 - Nicotine dependence, cigarettes, uncomplicated (4) Seizure Current Visit: No Status: Chronic (5) Pancytopenia Current Visit: Yes Status: Acute (6) Elevated liver enzymes Current Visit: Yes Status: Acute - AMA Did Patient Leave Against Medical Advice: Yes
[2020-07-10] MEDS ORDERED: chlordiazePOXIDE HCL 25 MG CAPSULE PO SCH (05:00)
--- NOTE | 2020-07-10 08:36 | PN ---
Teaching Attending Note Name of Resident: Argelia Vasquez ATTENDING PHYSICIAN STATEMENT I saw and evaluated the patient. I reviewed the resident's note and discussed the case with the resident. I agree with the resident's findings and plan as documented. SUBJECTIVE: OBJECTIVE: ASSESSMENT AND PLAN: Agree with resident's findings and plan for detox.
[2020-07-11] MEDS ORDERED: chlordiazePOXIDE HCL 10 MG CAPSULE PO PRN
[2020-07-11] MEDS ORDERED: chlordiazePOXIDE HCL 10 MG CAPSULE PO SCH (05:00)
[2020-07-12] MEDS ORDERED: chlordiazePOXIDE HCL 10 MG CAPSULE PO SCH (05:00)
[2020-07-13] MEDS ORDERED: chlordiazePOXIDE HCL 10 MG CAPSULE PO ONE (05:00)
== END 2020-07-09 15:35 | disposition left against medical advice (07) | DRG 770 ==
LOC: YASAS 15:22 → Y6N 18:44
PROVIDERS: ADMIT Allergy & Immunology; ATTEND Allergy & Immunology
PROC: HZ2ZZZZ Detoxification Services for Substance Abuse Treatment (ICD-10-PCS; principal; 2020-07-08)
DX: F10.230 Alcohol dependence with withdrawal, uncomplicated (principal); F17.210 Nicotine dependence, cigarettes, uncomplicated; G40.909 Epilepsy, unspecified, not intractable, without status epilepticus; D61.818 Other pancytopenia; R74.0 Nonspecific elevation of levels of transaminase and lactic acid dehydrogenase [LDH]; R74.8 Abnormal levels of other serum enzymes; Z85.72 Personal history of non-Hodgkin lymphomas
CPT/HCPCS: 36415; 80053; 85027; 86780; U0003

== ENCOUNTER 2020-10-07 19:43 | Emergency (ER) | payer OTHER ==
[2020-10-07 20:04] VITALS: TEMP 98; BMI 32.5
[2020-10-07] MEDS ORDERED: LORazepam 2 MG/ML SDV VIAL ONE (20:08)
[2020-10-07 21:52] LABS: EOS % 1.7 % (0-4.5); HEMATOCRIT 33.7 % (35.4-49); HEMOGLOBIN 10.6 GM/dL (11.7-16.9); LYMPH % 32.2 % (8-40); MCH 22.4 pg (25.7-33.7); MCHC 31.6 g/dl (32.0-35.9); MEAN CELL VOLUME 70.9 fl (80-96); MEAN PLT VOLUME 8.7 fl (7.5-11.1); MONO % 5.6 % (3.8-10.2); NEUT % 59.5 % (42.8-82.8); PLATELET COUNT 114 K/MM3 (134-434); RBC 4.75 M/mm3 (4.00-5.60); RDW 21.1 % (11.9-15.9)
[2020-10-07 22:11] LABS: POTASSIUM 3.9 mmol/L (3.5-5.1)
[2020-10-07 22:13] LABS: CALCIUM 8.2 mg/dL (8.5-10.1)
[2020-10-07 22:14] LABS: ALBUMIN 3.7 g/dl (3.4-5.0); BLOOD UREA NITROGEN 8.9 mg/dL (7-18)
[2020-10-07 22:17] LABS: CREATININE 0.6 mg/dL (0.55-1.3)
[2020-10-07 22:19] LABS: BILIRUBIN,TOTAL 0.6 mg/dL (0.2-1); TOT PROT 6.7 g/dl (6.4-8.2)
[2020-10-07 22:43] LABS: ANISOCYTOSIS 1+; MACROCYTOSIS 1+
[2020-10-07 23:33] VITALS: BP 127/56; PULSE 106
== END 2020-10-08 02:06 | disposition home or self-care (01) ==
LOC: JER 19:43
PROC: 3E023NZ Introduction of Analgesics, Hypnotics, Sedatives into Muscle, Percutaneous Approach (ICD-10-PCS; principal; 2020-10-07)
DX: F10.230 Alcohol dependence with withdrawal, uncomplicated (principal)
CPT/HCPCS: 36415; 70450-TC; 71045-TC-FY; 72125-TC; 80053; 82962; 85025; 93005; 93010; 99285-25

== ENCOUNTER 2020-10-08 02:44 | Inpatient (IN) | payer OTHER ==
[2020-10-08 02:59] VITALS: BMI 32.5
[2020-10-08] MEDS ORDERED: MAGNESIUM CITRATE 300 ML BOTTLE PO PRN (03:25)
[2020-10-08] MEDS ORDERED: ACETAMINOPHEN 325 MG TABLET (FP) PO PRN ×2 (03:25)
[2020-10-08] MEDS ORDERED: MAGNESIUM HYDROX 2400MG/30ML ORAL SUSPENSION 30 ML CUP PO PRN (03:25)
[2020-10-08] MEDS ORDERED: chlordiazePOXIDE HCL 25 MG CAPSULE PO PRN (03:25)
[2020-10-08] MEDS ORDERED: MENTHOL/PHENOL 1 EACH UD MM PRN (03:25)
[2020-10-08] MEDS ORDERED: BISMUTH SUBSALICYLATE 524 MG/30 ML UD PO PRN (03:25)
[2020-10-08] MEDS ORDERED: hydrOXYzine PAMOATE 25 MG CAPSULE (FP) PO PRN (03:25)
[2020-10-08] MEDS ORDERED: IBUPROFEN 400 MG TABLET (FP) PO PRN (03:25)
[2020-10-08] MEDS ORDERED: NICOTINE POLACRILEX 4 MG GUM BUC PRN (03:25)
[2020-10-08] MEDS ORDERED: DICYCLOMINE HCL 10 MG CAPSULE PO PRN (03:25)
[2020-10-08] MEDS ORDERED: P-EPHED 60MG/TRIPROLIDI 2.5MG TABLET PO PRN (03:25)
[2020-10-08] MEDS ORDERED: ONDANSETRON *ODT* 4 MG TABLET SL PRN (03:25)
[2020-10-08] MEDS ORDERED: MAG HYDROX/AL HYDROX/SIMETH 30 ML UNIT-DOSE CUP PO PRN (03:25)
[2020-10-08] MEDS ORDERED: chlordiazePOXIDE HCL 25 MG CAPSULE PO ONE (03:25)
[2020-10-08] MEDS ORDERED: guaiFENesin 200 MG/10 ML 10 ML UNIT-DOSE CUPS PO PRN (03:25)
[2020-10-08] MEDS ORDERED: ONDANSETRON *ODT* 4 MG TABLET SL ONE (03:29)
[2020-10-08] MEDS: chlordiazePOXIDE HCL 25 MG CAPSULE PO SCH ×4 (06:44→22:25)
[2020-10-08] MEDS: PANTOPRAZOLE 40 MG TABLET PO SCH (07:38)
[2020-10-08] MEDS: NICOTINE 21 MG/24 HOURS TOPICAL PATCH TD SCH (10:32)
[2020-10-08] MEDS: PRENATAL VITAMINS W/ FOLIC ACID TABLET (FP) PO SCH (10:32)
[2020-10-08] MEDS: METHOCARBAMOL 500 MG TABLET PO PRN (10:35)
[2020-10-08] MEDS ORDERED: TRIMETHOBENZAMIDE HCL 200MG/2ML INJ IM PRN (10:54)
[2020-10-08] MEDS ORDERED: levETIRAcetam 250 MG TABLET PO ONE (12:30)
[2020-10-08] MEDS: levETIRAcetam 250 MG TABLET PO SCH (22:25)
[2020-10-08] MEDS: MELATONIN 5 MG TABLETS PO SCH (22:25)
[2020-10-08] MEDS: THIAMINE HCL 100 MG TABLET (FP) PO SCH (22:25)
[2020-10-09] MEDS: chlordiazePOXIDE HCL 25 MG CAPSULE PO SCH ×4 (07:47→22:05)
[2020-10-09] MEDS: PANTOPRAZOLE 40 MG TABLET PO SCH (07:48)
[2020-10-09 09:31] LABS: HEMATOCRIT 29.6 % (35.4-49); HEMOGLOBIN 9.4 GM/dL (11.7-16.9); MCH 22.4 pg (25.7-33.7); MCHC 31.7 g/dl (32.0-35.9); MEAN CELL VOLUME 70.4 fl (80-96); MEAN PLT VOLUME 8.8 fl (7.5-11.1); PLATELET COUNT 59 K/MM3 (134-434); RDW 20.5 % (11.9-15.9); WHITE BLOOD COUNT 2.9 K/mm3 (4.0-10.0)
[2020-10-09 09:34] LABS: INR 1.15 (0.83-1.09); PROTHROMBIN TIME (PATIENT) 14.1 SEC (9.7-13.0)
[2020-10-09 09:50] LABS: POTASSIUM 3.5 mmol/L (3.5-5.1)
[2020-10-09 10:10] LABS: BLOOD UREA NITROGEN 9.4 mg/dL (7-18); CALCIUM 8.4 mg/dL (8.5-10.1)
[2020-10-09 10:13] LABS: CREATININE 0.5 mg/dL (0.55-1.3)
[2020-10-09 10:14] LABS: ALBUMIN 3.3 g/dl (3.4-5.0)
[2020-10-09 10:15] LABS: BILIRUBIN,TOTAL 1.2 mg/dL (0.2-1); TOT PROT 5.8 g/dl (6.4-8.2)
[2020-10-09] MEDS: PRENATAL VITAMINS W/ FOLIC ACID TABLET (FP) PO SCH (10:15)
[2020-10-09] MEDS: NICOTINE 21 MG/24 HOURS TOPICAL PATCH TD SCH (10:15)
[2020-10-09] MEDS: levETIRAcetam 250 MG TABLET PO SCH ×2 (10:16→21:47)
[2020-10-09] MEDS: LACTULOSE 20 GM/30 ML UDC (FOR ORAL USE ONLY) PO SCH ×4 (11:25→22:10)
[2020-10-09] MEDS: METHOCARBAMOL 500 MG TABLET PO PRN (14:20)
[2020-10-09] MEDS: FERROUS SO4 325 MG TABLET (FP) PO SCH (21:47)
[2020-10-09] MEDS: THIAMINE HCL 100 MG TABLET (FP) PO SCH (21:47)
[2020-10-09] MEDS: MELATONIN 5 MG TABLETS PO SCH (21:47)
[2020-10-10] MEDS ORDERED: chlordiazePOXIDE HCL 10 MG CAPSULE PO PRN
[2020-10-10] MEDS: PANTOPRAZOLE 40 MG TABLET PO SCH (06:40)
[2020-10-10] MEDS: chlordiazePOXIDE HCL 10 MG CAPSULE PO SCH ×2 (06:40→10:30)
[2020-10-10] MEDS: PRENATAL VITAMINS W/ FOLIC ACID TABLET (FP) PO SCH (10:30)
[2020-10-10] MEDS: FERROUS SO4 325 MG TABLET (FP) PO SCH ×2 (10:30→22:40)
[2020-10-10] MEDS: levETIRAcetam 250 MG TABLET PO SCH ×2 (10:30→22:42)
[2020-10-10] MEDS: LACTULOSE 20 GM/30 ML UDC (FOR ORAL USE ONLY) PO SCH ×4 (10:31→22:41)
[2020-10-10] MEDS: NICOTINE 21 MG/24 HOURS TOPICAL PATCH TD SCH (10:31)
[2020-10-10 11:14] LABS: BASO % 0.5 % (0-2.0); EOS % 2.7 % (0-4.5); HEMOGLOBIN 9.9 GM/dL (11.7-16.9); INR 1.15 (0.83-1.09); LYMPH % 23.5 % (8-40); MCH 22.6 pg (25.7-33.7); MCHC 31.8 g/dl (32.0-35.9); MEAN CELL VOLUME 70.9 fl (80-96); MEAN PLT VOLUME 8.8 fl (7.5-11.1); MONO % 7.3 % (3.8-10.2); PLATELET COUNT 55 K/MM3 (134-434); PROTHROMBIN TIME (PATIENT) 13.8 SEC (9.7-13.0); RBC 4.37 M/mm3 (4.00-5.60); RDW 20.6 % (11.9-15.9); WHITE BLOOD COUNT 3.2 K/mm3 (4.0-10.0)
[2020-10-10] MEDS ORDERED: LORazepam 0.5 MG TABLET PO PRN (11:33)
[2020-10-10] MEDS ORDERED: MASKS NR ONE (12:30)
[2020-10-10] MEDS: LORazepam 0.5 MG TABLET PO SCH ×2 (14:37→22:40)
[2020-10-10 20:35] LABS: EPI CELLS 19 /uL (0-25.1); HYALINE CASTS 3 /uL (0-3.1); URINE APPEARANCE TURBID; URINE BILIRUBIN 1+ (NEGATIVE); URINE COLOR DK YELLOW; URINE GLUCOSE (UA) NEGATIVE (NEGATIVE); URINE KETONE TRACE (NEGATIVE); URINE LEUK ESTERASE TRACE (NEGATIVE); URINE NITRITE POSITIVE (NEGATIVE); URINE PROTEIN NEGATIVE (NEGATIVE); URINE RBC 7 /uL (0-23.9); URINE WBC 6 /uL (0-25.8)
[2020-10-10] MEDS: MELATONIN 5 MG TABLETS PO SCH (22:41)
[2020-10-10] MEDS: THIAMINE HCL 100 MG TABLET (FP) PO SCH (22:43)
[2020-10-10 23:47] LABS: URINE BACTERIA 1.9 /uL (0-1359)
[2020-10-11] MEDS ORDERED: LORazepam 0.5 MG TABLET PO PRN (00:05)
[2020-10-11] MEDS ORDERED: chlordiazePOXIDE HCL 10 MG CAPSULE PO SCH (05:00)
[2020-10-11] MEDS ORDERED: LORazepam 0.5 MG TABLET PO SCH (05:00)
[2020-10-11] MEDS: PANTOPRAZOLE 40 MG TABLET PO SCH (06:56)
[2020-10-11 09:25] VITALS: BP 114/79; PULSE 100; TEMP 97
[2020-10-11] MEDS: levETIRAcetam 250 MG TABLET PO SCH (09:31)
[2020-10-11] MEDS: LACTULOSE 20 GM/30 ML UDC (FOR ORAL USE ONLY) PO SCH (09:31)
[2020-10-11] MEDS: FERROUS SO4 325 MG TABLET (FP) PO SCH (09:31)
[2020-10-11] MEDS: PRENATAL VITAMINS W/ FOLIC ACID TABLET (FP) PO SCH (09:31)
[2020-10-11] MEDS: NICOTINE 21 MG/24 HOURS TOPICAL PATCH TD SCH (09:33)
[2020-10-12] MEDS ORDERED: chlordiazePOXIDE HCL 10 MG CAPSULE PO ONE (05:00)
[2020-10-12] MEDS ORDERED: LORazepam 0.5 MG TABLET PO ONE (05:00)
== END 2020-10-11 09:41 | disposition home or self-care (01) | DRG 775 ==
LOC: YASAS 02:44 → Y3N 03:19
PROVIDERS: ADMIT Allergy & Immunology; ATTEND Allergy & Immunology
PROC: HZ2ZZZZ Detoxification Services for Substance Abuse Treatment (ICD-10-PCS; principal; 2020-10-08)
DX: F10.230 Alcohol dependence with withdrawal, uncomplicated (principal); F10.220 Alcohol dependence with intoxication, uncomplicated; F10.282 Alcohol dependence with alcohol-induced sleep disorder; F17.213 Nicotine dependence, cigarettes, with withdrawal; F19.24 Other psychoactive substance dependence with psychoactive substance-induced mood disorder; F32.9 Major depressive disorder, single episode, unspecified; R94.5 Abnormal results of liver function studies; G40.909 Epilepsy, unspecified, not intractable, without status epilepticus; R25.3 Fasciculation; R74.01 Elevation of levels of liver transaminase levels; R71.0 Precipitous drop in hematocrit; R79.1 Abnormal coagulation profile; R00.0 Tachycardia, unspecified; E72.20 Disorder of urea cycle metabolism, unspecified; D72.819 Decreased white blood cell count, unspecified; R63.8 Other symptoms and signs concerning food and fluid intake; E66.9 Obesity, unspecified; Z68.32 Body mass index [BMI] 32.0-32.9, adult; Z91.81 History of falling
CPT/HCPCS: 36415; 80053; 80177; 81003; 82140; 85025; 85027; 85610; 86780; C9803; Q0162; U0003

== ENCOUNTER 2021-06-01 08:29 | Inpatient (IN) | payer OTHER ==
[2021-06-01 08:51] VITALS: BMI 36.6
[2021-06-01] MEDS ORDERED: LORazepam 1 MG TABLET PO PRN (09:06)
[2021-06-01] MEDS ORDERED: NICOTINE POLACRILEX 2 MG GUM BUC PRN (09:06)
[2021-06-01] MEDS ORDERED: MAGNESIUM HYDROX 2400MG/30ML ORAL SUSPENSION 30 ML CUP PO PRN (09:06)
[2021-06-01] MEDS ORDERED: MAGNESIUM CITRATE 300 ML BOTTLE PO PRN (09:06)
[2021-06-01] MEDS ORDERED: MAG HYDROX/AL HYDROX/SIMETH 30 ML UNIT-DOSE CUP PO PRN (09:06)
[2021-06-01] MEDS ORDERED: ACETAMINOPHEN 325 MG TABLET (FP) PO PRN ×2 (09:06)
[2021-06-01] MEDS ORDERED: BISMUTH SUBSALICYLATE 262 MG/15 ML BTL PO PRN (09:06)
[2021-06-01] MEDS ORDERED: IBUPROFEN 400 MG TABLET (FP) PO PRN (09:06)
[2021-06-01] MEDS ORDERED: hydrOXYzine PAMOATE 25 MG CAPSULE (FP) PO SCH (10:00)
[2021-06-01] MEDS: TRIMETHOBENZAMIDE HCL 200MG/2ML INJ IM PRN ×2 (12:30→18:40)
[2021-06-01] MEDS ORDERED: TRIMETHOBENZAMIDE HCL 200MG/2ML INJ IM PRN (12:47)
[2021-06-01 13:17] LABS: HEMATOCRIT 34.6 % (35.4-49); HEMOGLOBIN 10.9 GM/dL (11.7-16.9); MCH 23.1 pg (25.7-33.7); MCHC 31.6 g/dl (32.0-35.9); MEAN CELL VOLUME 73.3 fl (80-96); MEAN PLT VOLUME 8.3 fl (7.5-11.1); PLATELET COUNT 49 10^3/uL (134-434); RBC 4.72 M/mm3 (4.00-5.60); RDW 21.2 % (11.9-15.9); WHITE BLOOD COUNT 4.9 K/mm3 (4.0-10.0)
[2021-06-01] MEDS: LORazepam 2 MG TABLET PO SCH ×3 (13:39→22:33)
[2021-06-01] MEDS: PRENATAL VITAMINS W/ FOLIC ACID TABLET (FP) PO SCH (13:40)
[2021-06-01] MEDS: NICOTINE 21 MG/24 HOURS TOPICAL PATCH TD SCH (13:40)
[2021-06-01] MEDS: levETIRAcetam 250 MG TABLET PO SCH ×2 (13:40→22:35)
[2021-06-01 14:08] LABS: ALBUMIN 4.2 g/dl (3.4-5.0); BLOOD UREA NITROGEN 7.4 mg/dL (7-18); CALCIUM 8.3 mg/dL (8.5-10.1)
[2021-06-01] MEDS ORDERED: LACTULOSE 20 GM/30 ML UDC (FOR ORAL USE ONLY) PO ONE (14:10)
[2021-06-01 14:12] LABS: CREATININE 0.6 mg/dL (0.55-1.3)
[2021-06-01 14:13] LABS: BILIRUBIN,TOTAL 0.9 mg/dL (0.2-1)
[2021-06-01] MEDS: MELATONIN 5 MG TABLETS PO SCH (22:33)
[2021-06-01] MEDS: THIAMINE HCL 100 MG TABLET (FP) PO SCH (22:33)
[2021-06-01] MEDS: ONDANSETRON *ODT* 4 MG TABLET SL PRN (22:34)
[2021-06-02] MEDS: LORazepam 2 MG TABLET PO SCH ×5 (07:58→23:25)
[2021-06-02] MEDS: levETIRAcetam 250 MG TABLET PO SCH ×3 (11:04→23:25)
[2021-06-02] MEDS: hydrOXYzine PAMOATE 25 MG CAPSULE (FP) PO PRN (11:04)
[2021-06-02] MEDS: PRENATAL VITAMINS W/ FOLIC ACID TABLET (FP) PO SCH (11:05)
[2021-06-02] MEDS: NICOTINE 21 MG/24 HOURS TOPICAL PATCH TD SCH (11:05)
[2021-06-02] MEDS: ONDANSETRON *ODT* 4 MG TABLET SL PRN (17:49)
[2021-06-02] MEDS: METHOCARBAMOL 500 MG TABLET PO PRN (17:49)
[2021-06-02] MEDS: THIAMINE HCL 100 MG TABLET (FP) PO SCH ×2 (23:13→23:27)
[2021-06-02] MEDS: MELATONIN 5 MG TABLETS PO SCH ×2 (23:13→23:25)
[2021-06-03] MEDS: LORazepam 1 MG TABLET PO SCH ×4 (06:37→22:52)
[2021-06-03 10:18] LABS: HEMATOCRIT 34.8 % (35.4-49); HEMOGLOBIN 11.2 GM/dL (11.7-16.9); MCH 23.6 pg (25.7-33.7); MCHC 32.1 g/dl (32.0-35.9); MEAN CELL VOLUME 73.5 fl (80-96); MEAN PLT VOLUME 8.1 fl (7.5-11.1); PLATELET COUNT 54 10^3/uL (134-434); RBC 4.73 M/mm3 (4.00-5.60); RDW 20.9 % (11.9-15.9); WHITE BLOOD COUNT 5.1 K/mm3 (4.0-10.0)
[2021-06-03 10:32] LABS: ALBUMIN 3.8 g/dl (3.4-5.0); CALCIUM 8.6 mg/dL (8.5-10.1)
[2021-06-03 10:36] LABS: CREATININE 0.6 mg/dL (0.55-1.3)
[2021-06-03 10:37] LABS: BILIRUBIN,TOTAL 0.8 mg/dL (0.2-1); BLOOD UREA NITROGEN 9.1 mg/dL (7-18); TOT PROT 6.4 g/dl (6.4-8.2)
[2021-06-03] MEDS: PRENATAL VITAMINS W/ FOLIC ACID TABLET (FP) PO SCH (11:25)
[2021-06-03] MEDS: levETIRAcetam 250 MG TABLET PO SCH ×2 (11:25→22:51)
[2021-06-03] MEDS: NICOTINE 21 MG/24 HOURS TOPICAL PATCH TD SCH (11:25)
[2021-06-03] MEDS: METHOCARBAMOL 500 MG TABLET PO PRN (11:26)
[2021-06-03] MEDS: LACTULOSE 20 GM/30 ML UDC (FOR ORAL USE ONLY) PO SCH ×3 (14:44→22:51)
[2021-06-03] MEDS: MENTHOL/PHENOL 1 EACH UD MM PRN (16:52)
[2021-06-03] MEDS: MELATONIN 5 MG TABLETS PO SCH (22:50)
[2021-06-03] MEDS: THIAMINE HCL 100 MG TABLET (FP) PO SCH (22:51)
[2021-06-04] MEDS ORDERED: LORazepam 0.5 MG TABLET PO PRN
[2021-06-04] MEDS: LORazepam 0.5 MG TABLET PO SCH ×4 (06:19→22:42)
[2021-06-04] MEDS: hydrOXYzine PAMOATE 25 MG CAPSULE (FP) PO PRN (11:10)
[2021-06-04] MEDS: LACTULOSE 20 GM/30 ML UDC (FOR ORAL USE ONLY) PO SCH ×4 (11:10→22:44)
[2021-06-04] MEDS: METHOCARBAMOL 500 MG TABLET PO PRN (11:10)
[2021-06-04] MEDS: levETIRAcetam 250 MG TABLET PO SCH ×2 (11:10→22:43)
[2021-06-04] MEDS: NICOTINE 21 MG/24 HOURS TOPICAL PATCH TD SCH (11:11)
[2021-06-04] MEDS: PRENATAL VITAMINS W/ FOLIC ACID TABLET (FP) PO SCH (11:11)
[2021-06-04] MEDS: THIAMINE HCL 100 MG TABLET (FP) PO SCH (22:42)
[2021-06-04] MEDS: MELATONIN 5 MG TABLETS PO SCH (22:42)
[2021-06-05] MEDS ORDERED: LORazepam 0.5 MG TABLET PO ONE (05:00)
[2021-06-05 09:09] VITALS: BP 119/82; PULSE 71; TEMP 96.8
[2021-06-05] MEDS: NICOTINE 21 MG/24 HOURS TOPICAL PATCH TD SCH (09:36)
[2021-06-05] MEDS: LACTULOSE 20 GM/30 ML UDC (FOR ORAL USE ONLY) PO SCH (09:36)
[2021-06-05] MEDS: levETIRAcetam 250 MG TABLET PO SCH (09:38)
[2021-06-05] MEDS: MENTHOL/PHENOL 1 EACH UD MM PRN (09:43)
[2021-06-05] MEDS: PRENATAL VITAMINS W/ FOLIC ACID TABLET (FP) PO SCH (10:02)
== END 2021-06-05 10:00 | disposition home or self-care (01) | DRG 774 ==
LOC: YASAS 08:29 → Y3N 09:35
PROVIDERS: ADMIT Allergy & Immunology; ATTEND Allergy & Immunology
PROC: HZ2ZZZZ Detoxification Services for Substance Abuse Treatment (ICD-10-PCS; principal; 2021-06-01)
DX: F10.230 Alcohol dependence with withdrawal, uncomplicated (principal); F10.220 Alcohol dependence with intoxication, uncomplicated; F14.20 Cocaine dependence, uncomplicated; F13.10 Sedative, hypnotic or anxiolytic abuse, uncomplicated; F17.210 Nicotine dependence, cigarettes, uncomplicated; R94.5 Abnormal results of liver function studies; G40.909 Epilepsy, unspecified, not intractable, without status epilepticus; D61.818 Other pancytopenia; E72.20 Disorder of urea cycle metabolism, unspecified; G47.00 Insomnia, unspecified; E66.9 Obesity, unspecified; Z68.36 Body mass index [BMI] 36.0-36.9, adult
CPT/HCPCS: 36415; 80053; 80177; 82140; 85027; 86780; C9803; Q0162; U0003; U0005

== ENCOUNTER 2024-07-29 15:30 | Inpatient (IN) | payer OTHER ==
[2024-07-29 16:03] VITALS: BMI 42.7
[2024-07-29] MEDS: levETIRAcetam 500 MG TABLET (FP) PO SCH ×2 (16:30→22:47)
[2024-07-29] MEDS ORDERED: chlordiazePOXIDE HCL 25 MG CAPSULE PO PRN (16:39)
[2024-07-29] MEDS ORDERED: levETIRAcetam 500 MG TABLET (FP) PO ONE (16:44)
[2024-07-29] MEDS ORDERED: ALBUTEROL SO4 0.083% IH SOL 2.5 MG/3 ML VIAL.NEB. NEB ONE (16:44)
[2024-07-29] MEDS ORDERED: chlordiazePOXIDE HCL 25 MG CAPSULE ONE (16:45)
[2024-07-29] MEDS: ALBUTEROL SO4 0.083% IH SOL 2.5 MG/3 ML VIAL.NEB. NEB ONE (16:53)
[2024-07-29] MEDS: chlordiazePOXIDE HCL 25 MG CAPSULE PO SCH (16:54)
[2024-07-29] MEDS ORDERED: guaiFENesin 600 MG TABLET.ER (FP) PO PRN (17:01)
[2024-07-29] MEDS ORDERED: BENZONATATE 200 MG CAPSULE PO PRN (17:01)
[2024-07-29] MEDS ORDERED: MAGNESIUM HYDROX 2400MG/30ML ORAL SUSPENSION 30 ML CUP PO PRN (17:01)
[2024-07-29] MEDS ORDERED: IBUPROFEN 400 MG TABLET (FP) PO PRN (17:01)
[2024-07-29] MEDS ORDERED: DICYCLOMINE HCL 10 MG CAPSULE PO PRN (17:01)
[2024-07-29] MEDS ORDERED: BENZOCAINE/MENTHOL (CHLORASEPTIC ) LOZENGE MM PRN (17:01)
[2024-07-29] MEDS ORDERED: MAG HYDROX/AL HYDROX/SIMETH 30 ML UNIT-DOSE CUP PO PRN (17:01)
[2024-07-29] MEDS ORDERED: NICOTINE POLACRILEX 2 MG GUM BUC PRN (17:01)
[2024-07-29] MEDS ORDERED: METHOCARBAMOL 500 MG TABLET PO PRN (17:01)
[2024-07-29] MEDS ORDERED: POLYETHYLENE GLYCOL (HEALTHYLAX) 3350 17 GM PACKET PO PRN (17:01)
[2024-07-29] MEDS ORDERED: NICOTINE POLACRILEX 2 MG LOZENGE BC PRN (17:01)
[2024-07-29] MEDS ORDERED: LOPERAMIDE HCL 2 MG CAPSULE PO PRN (17:01)
[2024-07-29] MEDS ORDERED: BISMUTH SUBSALICYLATE 524 MG/30 ML PO PRN (17:01)
[2024-07-29] MEDS: ASPIRIN COATED 81 MG TABLET.EC PO ONE (18:12)
[2024-07-29] MEDS: LORazepam 2 MG/ML SDV VIAL IM ONE (19:00)
[2024-07-29] MEDS: THIAMINE 100 MG TABLET PO SCH (22:47)
[2024-07-29] MEDS: MELATONIN 5 MG TABLETS PO SCH (22:47)
[2024-07-30] MEDS: ONDANSETRON *ODT* 4 MG TABLET SL PRN (04:00)
[2024-07-30] MEDS: hydrOXYzine PAMOATE 25 MG CAPSULE (FP) PO PRN (04:00)
[2024-07-30] MEDS: TRIMETHOBENZAMIDE HCL 200MG/2ML INJ IM PRN (09:15)
[2024-07-30] MEDS: PRENATAL VITAMINS W/ FOLIC ACID TABLET (FP) PO SCH (10:52)
[2024-07-30] MEDS: MAGNESIUM OXIDE 400 MG TABLET (FP) PO SCH (10:52)
[2024-07-30] MEDS: IBUPROFEN 600 MG TABLET (FP) PO PRN (12:41)
[2024-07-30] MEDS: cloNIDine HCL 0.1 MG TABLET PO PRN (12:41)
[2024-07-30] MEDS: FAMOTIDINE 20 MG TABLET PO SCH (16:52)
[2024-07-30] MEDS: ALBUTEROL SO4 0.083% IH SOL 2.5 MG/3 ML VIAL.NEB. NEB PRN (17:05)
[2024-07-30] MEDS: QUEtiapine FUMARATE 50 MG TABLET PO SCH (22:47)
[2024-07-30] MEDS: ALBUTEROL SO4 2.5/IPRATROPIUM 0.5 INH SOL 3 ML VIAL.NEB. NEB ONE ×2 (23:09→23:32)
[2024-07-30] MEDS: BUDESONIDE/FORMETEROL FUMARATE 160/4.5 mcg INHALER IH SCH (23:33)
[2024-07-31] MEDS: chlordiazePOXIDE HCL 25 MG CAPSULE PO SCH (05:57)
[2024-07-31] MEDS: ACAMPROSATE CALCIUM 333 MG TABLET.DR PO SCH (14:20)
[2024-08-01] MEDS ORDERED: chlordiazePOXIDE HCL 10 MG CAPSULE PO PRN
[2024-08-01] MEDS: chlordiazePOXIDE HCL 10 MG CAPSULE PO SCH (06:02)
[2024-08-01] MEDS: ACETAMINOPHEN 325 MG TABLET (FP) PO PRN (10:24)
[2024-08-02] MEDS: chlordiazePOXIDE HCL 10 MG CAPSULE PO SCH (05:09)
[2024-08-03] MEDS: chlordiazePOXIDE HCL 10 MG CAPSULE PO ONE (05:28)
[2024-08-03 09:07] VITALS: BP 123/77; PULSE 111; RESP 17; TEMP 98.9
== END 2024-08-03 09:15 | disposition other institution (70) | DRG 774 ==
LOC: YASAS 15:30 → Y6N 17:05
PROVIDERS: ADMIT Allergy & Immunology; ATTEND Surgery
PROC: HZ2ZZZZ Detoxification Services for Substance Abuse Treatment (ICD-10-PCS; principal; 2024-07-29)
DX: F10.230 Alcohol dependence with withdrawal, uncomplicated (principal); F14.20 Cocaine dependence, uncomplicated; F17.210 Nicotine dependence, cigarettes, uncomplicated; F10.24 Alcohol dependence with alcohol-induced mood disorder; F19.282 Other psychoactive substance dependence with psychoactive substance-induced sleep disorder; F19.24 Other psychoactive substance dependence with psychoactive substance-induced mood disorder; G40.909 Epilepsy, unspecified, not intractable, without status epilepticus; K21.9 Gastro-esophageal reflux disease without esophagitis; J45.20 Mild intermittent asthma, uncomplicated; Z99.89 Dependence on other enabling machines and devices
CPT/HCPCS: 80305; 80307; 93005; 93010; 94640; Q0162

== ENCOUNTER 2024-09-02 12:14 | Inpatient (IN) | payer OTHER ==
[2024-09-02] MEDS ORDERED: ALBUTEROL SO4 HFA INHALER IH PRN (13:24)
[2024-09-02] MEDS ORDERED: levETIRAcetam XR 750 MG TAB PO SCH (13:30)
[2024-09-02 13:31] VITALS: BMI 41.7
[2024-09-02] MEDS ORDERED: BENZONATATE 200 MG CAPSULE PO PRN (13:31)
[2024-09-02] MEDS ORDERED: POLYETHYLENE GLYCOL (HEALTHYLAX) 3350 17 GM PACKET PO PRN (13:31)
[2024-09-02] MEDS ORDERED: IBUPROFEN 600 MG TABLET (FP) PO PRN (13:31)
[2024-09-02] MEDS ORDERED: MAGNESIUM HYDROX 2400MG/30ML ORAL SUSPENSION 30 ML CUP PO PRN (13:31)
[2024-09-02] MEDS ORDERED: BISMUTH SUBSALICYLATE 524 MG/30 ML PO PRN (13:31)
[2024-09-02] MEDS ORDERED: IBUPROFEN 400 MG TABLET (FP) PO PRN (13:31)
[2024-09-02] MEDS ORDERED: guaiFENesin 600 MG TABLET.ER (FP) PO PRN (13:31)
[2024-09-02] MEDS ORDERED: BENZOCAINE/MENTHOL (CHLORASEPTIC ) LOZENGE MM PRN (13:31)
[2024-09-02] MEDS ORDERED: NICOTINE POLACRILEX 2 MG GUM BUC PRN (13:31)
[2024-09-02] MEDS ORDERED: ACETAMINOPHEN 325 MG TABLET (FP) PO PRN (13:31)
[2024-09-02] MEDS ORDERED: LOPERAMIDE HCL 2 MG CAPSULE PO PRN (13:31)
[2024-09-02] MEDS ORDERED: NICOTINE POLACRILEX 2 MG LOZENGE BC PRN (13:31)
[2024-09-02] MEDS ORDERED: MAG HYDROX/AL HYDROX/SIMETH 30 ML UNIT-DOSE CUP PO PRN (13:31)
[2024-09-02] MEDS ORDERED: DICYCLOMINE HCL 10 MG CAPSULE PO PRN (13:31)
[2024-09-02] MEDS: NALOXONE (NYS OPIOID OVERDOSE PROGRAM) 4 MG/0.1 ML SPRAY NS ONE (13:40)
[2024-09-02] MEDS ORDERED: TRIMETHOBENZAMIDE HCL 200MG/2ML INJ IM ONE (13:42)
[2024-09-02] MEDS: TRIMETHOBENZAMIDE HCL 200MG/2ML INJ IM ONE (13:43)
[2024-09-02] MEDS ORDERED: chlordiazePOXIDE HCL 25 MG CAPSULE PO ONE (13:45)
[2024-09-02] MEDS ORDERED: SILVER SULFADIAZINE 1% TOP CREAM 400 GM JAR TP SCH (13:45)
[2024-09-02] MEDS: LORazepam 2 MG/ML SDV VIAL IM ONE (13:47)
[2024-09-02] MEDS: SILVER SULFADIAZINE 1% TOP CREAM 50 GM JAR TP SCH (14:35)
[2024-09-02] MEDS: BUDESONIDE/FORMETEROL FUMARATE 160/4.5 mcg INHALER IH SCH (14:46)
[2024-09-02] MEDS: levETIRAcetam XR 750 MG TAB PO SCH (14:50)
[2024-09-02] MEDS: ONDANSETRON *ODT* 4 MG TABLET SL PRN (14:58)
[2024-09-02] MEDS: chlordiazePOXIDE HCL 25 MG CAPSULE PO SCH (17:28)
[2024-09-02] MEDS: cloNIDine HCL 0.1 MG TABLET PO PRN (17:30)
[2024-09-02] MEDS: SULFAMETHOXAZOLE/TRIMETHOPRIM 800MG/160MG D.S. TABLET PO SCH (22:49)
[2024-09-02] MEDS: THIAMINE 100 MG TABLET PO SCH (22:50)
[2024-09-02] MEDS: METHOCARBAMOL 500 MG TABLET PO PRN (22:50)
[2024-09-02] MEDS: MELATONIN 5 MG TABLETS PO SCH (22:56)
[2024-09-03] MEDS: chlordiazePOXIDE HCL 25 MG CAPSULE PO PRN (01:44)
[2024-09-03] MEDS: hydrOXYzine PAMOATE 25 MG CAPSULE (FP) PO PRN (01:44)
[2024-09-03 11:25] LABS: POTASSIUM 4.1 mmol/L (3.5-5.1)
[2024-09-03 11:28] LABS: ALBUMIN 3.3 g/dl (3.4-5.0); BLOOD UREA NITROGEN 6.2 mg/dL (7-18); CALCIUM 8.6 mg/dL (8.5-10.1)
[2024-09-03 11:31] LABS: CREATININE 0.4 mg/dL (0.55-1.3)
[2024-09-03 11:32] LABS: BILIRUBIN,TOTAL 0.6 mg/dL (0.2-1)
[2024-09-03 11:33] LABS: TOT PROT 5.6 g/dl (6.4-8.2)
[2024-09-03] MEDS: TRIMETHOBENZAMIDE HCL 200MG/2ML INJ IM ONE (11:41)
[2024-09-03 11:48] LABS: HEMATOCRIT 25.7 % (35.4-49); HEMOGLOBIN 7.6 GM/dL (11.7-16.9); MCHC 29.8 g/dl (32.0-35.9); MEAN CELL VOLUME 63.1 fl (80-96); MEAN PLT VOLUME 8.2 fl (7.5-11.1); PLATELET COUNT 51 10^3/uL (134-434); RBC 4.07 M/mm3 (4.00-5.60); RDW 21.8 % (11.9-15.9); WHITE BLOOD COUNT 2.1 K/mm3 (4.0-10.0)
[2024-09-03 11:51] LABS: MCH 18.8 pg (25.7-33.7)
[2024-09-03] MEDS: PRENATAL VITAMINS W/ FOLIC ACID TABLET (FP) PO SCH (13:41)
[2024-09-03] MEDS: FAMOTIDINE 20 MG TABLET PO SCH (13:45)
[2024-09-03] MEDS: FLU VACCINE (FLULAVAL) PF 45 MCG/0.5 ML SYRINGE 2024-2025 IM ONE (13:47)
[2024-09-03] MEDS: SILVER SULFADIAZINE 1% TOP CREAM 50 GM JAR TP SCH (13:47)
[2024-09-03] MEDS: PNEUMOC 20-VAL CONJ-DIP CRM/PF 0.5 ML SYRINGE IM ONE (13:47)
[2024-09-04] MEDS: chlordiazePOXIDE HCL 25 MG CAPSULE PO SCH (06:09)
[2024-09-04] MEDS ORDERED: diazePAM 5 MG TABLET PO PRN (09:58)
[2024-09-04] MEDS: diazePAM 5 MG TABLET PO SCH (11:21)
[2024-09-04] MEDS: TRIMETHOBENZAMIDE HCL 200MG/2ML INJ IM ONE ×2 (11:31→11:40)
[2024-09-04] MEDS: LORazepam 2 MG/ML SDV VIAL IM ONE (12:44)
[2024-09-04] MEDS: METOPROLOL TARTRATE 25 MG TABLET (FP) PO ONE (18:58)
[2024-09-04] MEDS: amLODIPine BESYLATE 10 MG TABLET (FP) PO SCH (18:58)
[2024-09-05] MEDS ORDERED: chlordiazePOXIDE HCL 10 MG CAPSULE PO PRN
[2024-09-05] MEDS ORDERED: chlordiazePOXIDE HCL 10 MG CAPSULE PO SCH (05:00)
[2024-09-05] MEDS: diazePAM 5 MG TABLET PO SCH (05:52)
[2024-09-05 11:36] LABS: POTASSIUM 3.6 mmol/L (3.5-5.1)
[2024-09-05 11:42] LABS: ALBUMIN 3.6 g/dl (3.4-5.0)
[2024-09-05 11:46] LABS: BLOOD UREA NITROGEN 7.5 mg/dL (7-18); CREATININE 0.7 mg/dL (0.55-1.3)
[2024-09-05 11:47] LABS: BILIRUBIN,TOTAL 0.8 mg/dL (0.2-1); TOT PROT 6.3 g/dl (6.4-8.2)
[2024-09-05 12:24] LABS: BASO % 0.3 % (0-2.0); EOS % 2.7 % (0-4.5); HEMATOCRIT 29.7 % (35.4-49); HEMOGLOBIN 8.7 GM/dL (11.7-16.9); LYMPH % 23.6 % (8-40); MCHC 29.3 g/dl (32.0-35.9); MEAN CELL VOLUME 64.2 fl (80-96); MEAN PLT VOLUME 8.2 fl (7.5-11.1); MONO % 9.9 % (3.8-10.2); NEUT % 63.5 % (42.8-82.8); PLATELET COUNT 51 10^3/uL (134-434); RBC 4.63 M/mm3 (4.00-5.60); RDW 21.5 % (11.9-15.9); WHITE BLOOD COUNT 4.5 K/mm3 (4.0-10.0)
[2024-09-05 12:25] LABS: MCH 18.8 pg (25.7-33.7)
[2024-09-06] MEDS ORDERED: chlordiazePOXIDE HCL 10 MG CAPSULE PO SCH (05:00)
[2024-09-06] MEDS: diazePAM 5 MG TABLET PO SCH (05:52)
[2024-09-07] MEDS ORDERED: chlordiazePOXIDE HCL 10 MG CAPSULE PO ONE (05:00)
[2024-09-07] MEDS: diazePAM 5 MG TABLET PO ONE (06:26)
[2024-09-07 06:43] VITALS: BP 115/62; PULSE 80; RESP 18; TEMP 97.6
== END 2024-09-07 08:47 | disposition home or self-care (01) | DRG 775 ==
LOC: YASAS 12:14 → Y3N 13:36
PROVIDERS: ADMIT Allergy & Immunology; ATTEND Surgery
PROC: HZ2ZZZZ Detoxification Services for Substance Abuse Treatment (ICD-10-PCS; principal; 2024-09-02)
DX: F10.230 Alcohol dependence with withdrawal, uncomplicated (principal); F17.210 Nicotine dependence, cigarettes, uncomplicated; F32.A Depression, unspecified; D64.9 Anemia, unspecified; G40.909 Epilepsy, unspecified, not intractable, without status epilepticus; I10 Essential (primary) hypertension; J44.9 Chronic obstructive pulmonary disease, unspecified; K21.9 Gastro-esophageal reflux disease without esophagitis; R26.89 Other abnormalities of gait and mobility
CPT/HCPCS: 36415; 73610-TC-RT-FY; 73630-TC-RT-FY; 80053; 80305; 80307; 85025; 85027; 86780; Q0162